=== PATIENT | male | born 1930 | race Caucasian/White ===

== ENCOUNTER 2016-07-17 18:52 | Emergency (ER) | payer MEDICARE, OTHER ==
[~2016-07-17 18:52] MED LIST: ADULT ASPIRIN81 MG; ADULT LOW DOSE81 M1 PO; AGGRENOX1 CAP PO; ASPIRIN81 MG; ASPIRIN81 MG PO; AYR SALINE NASA22 ML; BACLOFEN10 MG PO; BISACODYL10 MG/SU; BISACODYL5 MG; CIPRO250 M2 PO; CIPRO500 M2 PO; COLACE; COREG3.125 M1 PO; COREG3.125 MG PO; DULCOLAX10 MG RC; ELIQ PO; ELIQUIS2.5 M1 PO; FLOMAX0.4 M1 PO; GLUCAGON EMERGEN1 MG IJ; GLUCOPHAGE500 M1 PO; GLUCOPHAGE500 MG/TA1 GT; HUMALOG100 UNITS/ SC; HYDROCHLOROTH12.5 MG PO; IRON325 M3 PO; JANUVIA100 MG PO; JANUVIA50 M1 PO; KEFLEX500 M4 PO; LEVEMIR FL100 UNIT/2 SC; LIQUITEARS15 M1 EACH EYE; METFORMIN HYDRO25 GM; MILK OF MA400 MG/5 M; MUCINEX1200 MG PO; NORCO 5/325 TAB1 TAB PO; NORVASC10 MG; NORVASC10 MG PO; NOVOLOG FL100 UNIT/2 SC; OFLOXACIN5 M2 OT; PEPCID20 M1 PO; PLAVIX75 MG; PLAVIX75 MG PO; PREDNISONE5 M1 PO; PRINIVIL20 MG PO; SENNA LAX8.6 M2 PO; SENOKOT8.6 M1 PO; SINGULAIR10 M1 PO; TYLENOL325 M2 PO; TYLENOL325 MG PO; ZOCOR40 M1 PO; ZOCOR40 MG; ZOCOR40 MG PO; ZYTIGA250 M1 PO
[2016-07-17] MEDS ORDERED: NORCO 5/3251 TAB PO (20:01)
[2016-07-17] MEDS ORDERED: KEFLEX500 M4 PO (20:01)
[2016-10-12] MEDS ORDERED: REMEDY CALAZIM113 G2 TOP (11:04)
[2016-10-12] MEDS ORDERED: BISCOLAX10 MG PR (11:05)
[2016-10-12] MEDS ORDERED: SWEEN 24255 GM TOP (11:05)
[2016-10-12] MEDS ORDERED: ENEMEEZ283 MG/5 M PR (11:06)
[2016-10-12] MEDS ORDERED: TRAMADOL HCL50 M2 PO (11:06)
[2016-10-12] MEDS ORDERED: TYLENOL325 M2 PO (11:07)
[2016-10-12] MEDS ORDERED: ONDANSETRON ODT4 M1 PO (11:07)
[2016-10-12] MEDS ORDERED: PHILLIPS'400 MG/51 PO (11:08)
[2016-10-12] MEDS ORDERED: IPRAT-ALBUT 0.5-3 ML INH ×2 (11:09→11:21)
[2016-10-12] MEDS ORDERED: [UNRECOGNIZED DRUG - OTHER] TOP (11:10)
[2016-10-12] MEDS ORDERED: NYAMYC15 GM TOP (11:10)
[2016-10-12] MEDS ORDERED: SULFAMYLON60 GM TOP (11:11)
[2016-10-12] MEDS ORDERED: LEVEMIR FL100 UNIT/2 SC (11:12)
[2016-10-12] MEDS ORDERED: LOVENOX30 MG/0.1 SC (11:12)
[2016-10-12] MEDS ORDERED: NOVOLOG FL100 UNIT/2 SC (11:14)
[2016-10-12] MEDS ORDERED: CALCI-CHEW500 MG PO (11:14)
[2016-10-12] MEDS ORDERED: ZOCOR40 M1 PO (11:14)
[2016-10-12] MEDS ORDERED: ACID CONTROL150 M2 PO (11:15)
[2016-10-12] MEDS ORDERED: LYRICA75 MG/CAP PO (11:15)
[2016-10-12] MEDS ORDERED: TEMAZEPAM15 M1 PO (11:16)
[2016-10-12] MEDS ORDERED: PREDNISONE5 M1 PO (11:16)
[2016-10-12] MEDS ORDERED: TYLENOL EXTRA500 M1 PO ×2 (11:17)
[2016-10-12] MEDS ORDERED: COREG3.125 M1 PO (11:18)
[2016-10-12] MEDS ORDERED: FEOSOL325 M1 PO (11:20)
[2016-10-12] MEDS ORDERED: ASPIRIN EC81 MG PO (11:20)
[2016-10-12] MEDS ORDERED: VANCOMYCIN125 MG/2.1 PO (11:20)
[2016-10-12] MEDS ORDERED: XTANDI40 M1 PO (11:21)
[2016-10-12] MEDS ORDERED: ZOSYN 3.373.375 GM/2 IV (11:23)
== END 2016-07-17 20:10 ==
LOC: EDMED 18:52
DX: S91.101A Unspecified open wound of right great toe without damage to nail, initial encounter (principal); L03.115 Cellulitis of right lower limb; E11.9 Type 2 diabetes mellitus without complications; E78.5 Hyperlipidemia, unspecified; Z79.4 Long term (current) use of insulin; X58.XXXA Exposure to other specified factors, initial encounter

== ENCOUNTER 2016-07-22 09:27 | Inpatient (IN) | payer MEDICARE, OTHER ==
[~2016-07-22 09:27] MED LIST changes: +NORCO 5/3251 TAB PO
[2016-07-22] MEDS ORDERED: NORCO 5-325 TA1 EACH PO (09:39)
[2016-07-22] MEDS ORDERED: POTASSIUM CHLO20 ME3 PO (09:40)
[2016-07-22] MEDS ORDERED: KEFLEX500 M4 PO (09:40)
[2016-07-22] MEDS ORDERED: LASIX40 M1 PO (09:40)
[2016-07-22] MEDS ORDERED: XTANDI40 M1 PO (09:48)
[2016-07-22 10:19] LABS: BASO % 0.2 % (0-2); EOS % 1.6 % (0-7); EOSINOPHIL ABSOLUTE COUNT 0.1 tho/cmm (0.0-0.7); HGB-HEMOGLOBIN 10.4 gm/dl (13.5-17.0); IMMATURE GRANULOCYTES ABSOLUTE 0.04 tho/cmm (0-0.03); IMMATURE GRANULOCYTES PERCENT 0.7 % (0-0.3); LYMPH % 8.6 % (20-45); LYMPH ABSOLUTE COUNT 0.5 tho/cmm (0.8-4.5); MCH (MEAN CORPUSCULAR HGB) 29.4 pg (28.0-32.0); MCHC MEAN CORPUSCULAR HGB CONC 32.5 % (32.0-36.0); MCV (MEAN CELL VOLUME) 90.4 fl (82.0-96.0); MEAN PLATELET VOLUME 10.7 cmc (9.4-12.4); MONO % 9.3 % (0-12); MONOCYTE ABSOLUTE COUNT 0.6 tho/cmm (0.0-1.2); NEUTROPHIL ABSOLUTE COUNT 4.9 tho/cmm (1.6-8.0); NEUTROPHIL-AUTOMATED 4.9 tho/cmm (1.6-8.0); NEUTROPHILS % 79.6 % (40-80); PLATELET COUNT 289 tho/cmm (150-450); RED BLOOD COUNT 3.54 mil/cmm (4.40-5.70); RED CELL DISTRIBUTION WIDTH 14.7 % (12.4-16.4); WHITE BLOOD COUNT 6.1 tho/cmm (4.0-10.0)
[2016-07-22 10:36] LABS: ALB/GLOB RATIO 0.8 (0.8-2.0); ALBUMIN 3.2 g/dl (3.5-5.0); ALKALINE PHOSPHATASE 240 U/L (33-138); ALT/SGPT 11 U/L (12-78); ANION GAP 12 mmol/L (0-20); AST/SGOT 49 U/L (10-40); BILIRUBIN,TOTAL 0.7 mg/dl (0.0-1.5); BLOOD UREA NITROGEN 31 mg/dl (6-24); CALCIUM 8.7 mg/dl (8.5-10.5); CARBON DIOXIDE-VENOUS 28 mmol/L (22-32); CHLORIDE 107 mmol/l (96-110); CREATININE 1.51 mg/dl (0.60-1.30); GLUCOSE 189 mg/dL (70-110); POTASSIUM 3.9 mmol/L (3.7-5.1); SODIUM 143 mmol/L (135-145); eGFR VALUE FOR BLACK 48 mL/Min
[2016-07-22 15:04] LABS: URINE BILIRUBIN NEGATIVE (NEG); URINE BLOOD SMALL (NEG); URINE GLUCOSE (UA) NEGATIVE (NEG); URINE KETONE NEGATIVE (NEG); URINE LEUKOCYTE ESTERASE NEGATIVE (NEG); URINE NITRITE NEGATIVE (NEG); URINE PROTEIN MODERATE (NEG); URINE SPECIFIC GRAVITY 1.015 (1.003-1.030)
[2016-07-22 15:05] LABS: URINE APPEARANCE CLEAR; URINE COLOR YELLOW
[2016-07-22 15:20] LABS: URINE AMORPHOUS 2+; URINE MUCUS 1+
[2016-07-23 01:45] LABS: BASO % 0.2 % (0-2); EOS % 1.6 % (0-7); EOSINOPHIL ABSOLUTE COUNT 0.1 tho/cmm (0.0-0.7); HCT-HEMATOCRIT 28.3 % (36.0-53.5); HGB-HEMOGLOBIN 9.1 gm/dl (13.5-17.0); IMMATURE GRANULOCYTES ABSOLUTE 0.04 tho/cmm (0-0.03); IMMATURE GRANULOCYTES PERCENT 0.8 % (0-0.3); LYMPH % 15.2 % (20-45); LYMPH ABSOLUTE COUNT 0.8 tho/cmm (0.8-4.5); MCH (MEAN CORPUSCULAR HGB) 28.7 pg (28.0-32.0); MCHC MEAN CORPUSCULAR HGB CONC 32.2 % (32.0-36.0); MCV (MEAN CELL VOLUME) 89.3 fl (82.0-96.0); MEAN PLATELET VOLUME 10.4 cmc (9.4-12.4); MONO % 10.6 % (0-12); MONOCYTE ABSOLUTE COUNT 0.5 tho/cmm (0.0-1.2); NEUTROPHIL ABSOLUTE COUNT 3.6 tho/cmm (1.6-8.0); NEUTROPHIL-AUTOMATED 3.6 tho/cmm (1.6-8.0); NEUTROPHILS % 71.6 % (40-80); PLATELET COUNT 228 tho/cmm (150-450); RED BLOOD COUNT 3.17 mil/cmm (4.40-5.70); RED CELL DISTRIBUTION WIDTH 14.7 % (12.4-16.4)
[2016-07-23 02:13] LABS: ALB/GLOB RATIO 0.7 (0.8-2.0); ALBUMIN 2.5 g/dl (3.5-5.0); ALKALINE PHOSPHATASE 228 U/L (33-138); ALT/SGPT 11 U/L (12-78); ANION GAP 12 mmol/L (0-20); AST/SGOT 54 U/L (10-40); BILIRUBIN,TOTAL 0.7 mg/dl (0.0-1.5); BLOOD UREA NITROGEN 35 mg/dl (6-24); CALCIUM 8.1 mg/dl (8.5-10.5); CARBON DIOXIDE-VENOUS 28 mmol/L (22-32); CHLORIDE 107 mmol/l (96-110); CREATININE 1.55 mg/dl (0.60-1.30); POTASSIUM 3.8 mmol/L (3.7-5.1); SODIUM 143 mmol/L (135-145); eGFR VALUE FOR BLACK 46 mL/Min
[2016-07-23 02:16] LABS: GLUCOSE 93 mg/dL (70-110)
[2016-07-23 07:00] LABS: HGB-HEMOGLOBIN 8.5 gm/dl (13.5-17.0); PLATELET COUNT 211 tho/cmm (150-450)
--- NOTE | 2016-07-23 17:41 | NUR ---
virtual care note: checked in on pt. he recieves phone call. appears comfortable and has no current needs. no family present. pt sitting up in his bed. will continue to monitor. electronic chart reviewed.
[2016-07-24 04:58] LABS: BASO % 0.2 % (0-2); EOSINOPHIL ABSOLUTE COUNT 0.1 tho/cmm (0.0-0.7); HCT-HEMATOCRIT 27.9 % (36.0-53.5); HGB-HEMOGLOBIN 9.1 gm/dl (13.5-17.0); IMMATURE GRANULOCYTES ABSOLUTE 0.02 tho/cmm (0-0.03); IMMATURE GRANULOCYTES PERCENT 0.3 % (0-0.3); LYMPH % 13.2 % (20-45); LYMPH ABSOLUTE COUNT 0.8 tho/cmm (0.8-4.5); MCH (MEAN CORPUSCULAR HGB) 28.6 pg (28.0-32.0); MCHC MEAN CORPUSCULAR HGB CONC 32.6 % (32.0-36.0); MCV (MEAN CELL VOLUME) 87.7 fl (82.0-96.0); MEAN PLATELET VOLUME 10.8 cmc (9.4-12.4); MONO % 11.5 % (0-12); MONOCYTE ABSOLUTE COUNT 0.7 tho/cmm (0.0-1.2); NEUTROPHIL ABSOLUTE COUNT 4.5 tho/cmm (1.6-8.0); NEUTROPHIL-AUTOMATED 4.5 tho/cmm (1.6-8.0); NEUTROPHILS % 73.8 % (40-80); PLATELET COUNT 240 tho/cmm (150-450); RED BLOOD COUNT 3.18 mil/cmm (4.40-5.70); RED CELL DISTRIBUTION WIDTH 14.5 % (12.4-16.4); WHITE BLOOD COUNT 6.1 tho/cmm (4.0-10.0)
[2016-07-24 05:11] LABS: ANION GAP 13 mmol/L (0-20); BLOOD UREA NITROGEN 35 mg/dl (6-24); CALCIUM 8.1 mg/dl (8.5-10.5); CARBON DIOXIDE-VENOUS 26 mmol/L (22-32); CHLORIDE 105 mmol/l (96-110); CREATININE 1.54 mg/dl (0.60-1.30); POTASSIUM 3.6 mmol/L (3.7-5.1); SODIUM 140 mmol/L (135-145); eGFR VALUE FOR BLACK 47 mL/Min
[2016-07-24 05:17] LABS: GLUCOSE 157 mg/dL (70-110)
[2016-07-24] MEDS ORDERED: BACTRIM DS TAB1 EAC2 PO (09:59)
[2016-07-24] MEDS ORDERED: STOP HOME MEDICATION (10:00)
--- NOTE | 2016-07-24 13:40 | NUR ---
VIRTUAL CARE NOTE: PT DRESSED SITTING ON CHAIR, SAL IN ROOM READY FOR DISCHARGE TEACHING. INFORMATION GIVEN TO PT AND DAUGHTER, DENIES QUESTIONS OR CONCERNS. INFORMED FLOOR NURSE DISCHARGE TEACHING DONE.
[2016-10-12] MEDS ORDERED: REMEDY CALAZIM113 G2 TOP (11:04)
[2016-10-12] MEDS ORDERED: SWEEN 24255 GM TOP (11:05)
[2016-10-12] MEDS ORDERED: BISCOLAX10 MG PR (11:05)
[2016-10-12] MEDS ORDERED: ENEMEEZ283 MG/5 M PR (11:06)
[2016-10-12] MEDS ORDERED: TRAMADOL HCL50 M2 PO (11:06)
[2016-10-12] MEDS ORDERED: TYLENOL325 M2 PO (11:07)
[2016-10-12] MEDS ORDERED: ONDANSETRON ODT4 M1 PO (11:07)
[2016-10-12] MEDS ORDERED: PHILLIPS'400 MG/51 PO (11:08)
[2016-10-12] MEDS ORDERED: IPRAT-ALBUT 0.5-3 ML INH ×2 (11:09→11:21)
[2016-10-12] MEDS ORDERED: NYAMYC15 GM TOP (11:10)
[2016-10-12] MEDS ORDERED: [UNRECOGNIZED DRUG - OTHER] TOP (11:10)
[2016-10-12] MEDS ORDERED: SULFAMYLON60 GM TOP (11:11)
[2016-10-12] MEDS ORDERED: LOVENOX30 MG/0.1 SC (11:12)
[2016-10-12] MEDS ORDERED: LEVEMIR FL100 UNIT/2 SC (11:12)
[2016-10-12] MEDS ORDERED: ZOCOR40 M1 PO (11:14)
[2016-10-12] MEDS ORDERED: NOVOLOG FL100 UNIT/2 SC (11:14)
[2016-10-12] MEDS ORDERED: CALCI-CHEW500 MG PO (11:14)
[2016-10-12] MEDS ORDERED: ACID CONTROL150 M2 PO (11:15)
[2016-10-12] MEDS ORDERED: LYRICA75 MG/CAP PO (11:15)
[2016-10-12] MEDS ORDERED: TEMAZEPAM15 M1 PO (11:16)
[2016-10-12] MEDS ORDERED: PREDNISONE5 M1 PO (11:16)
[2016-10-12] MEDS ORDERED: TYLENOL EXTRA500 M1 PO ×2 (11:17)
[2016-10-12] MEDS ORDERED: COREG3.125 M1 PO (11:18)
[2016-10-12] MEDS ORDERED: ASPIRIN EC81 MG PO (11:20)
[2016-10-12] MEDS ORDERED: FEOSOL325 M1 PO (11:20)
[2016-10-12] MEDS ORDERED: VANCOMYCIN125 MG/2.1 PO (11:20)
[2016-10-12] MEDS ORDERED: XTANDI40 M1 PO (11:21)
[2016-10-12] MEDS ORDERED: ZOSYN 3.373.375 GM/2 IV (11:23)
== END 2016-07-24 14:30 | DRG 603 ==
LOC: EDMED 09:27 → EMR2 12:52 → 5WD 15:10
PROVIDERS: Emergency Medicine; Family Medicine; Internal Medicine; ADMIT Hospitalist
DX: L03.115 Cellulitis of right lower limb (principal); E11.22 Type 2 diabetes mellitus with diabetic chronic kidney disease; I69.354 Hemiplegia and hemiparesis following cerebral infarction affecting left non-dominant side; J20.9 Acute bronchitis, unspecified; E78.5 Hyperlipidemia, unspecified; K21.9 Gastro-esophageal reflux disease without esophagitis; I12.9 Hypertensive chronic kidney disease with stage 1 through stage 4 chronic kidney disease, or unspecified chronic kidney disease; N18.9 Chronic kidney disease, unspecified; I48.91 Unspecified atrial fibrillation; M19.90 Unspecified osteoarthritis, unspecified site; D64.9 Anemia, unspecified; Z85.46 Personal history of malignant neoplasm of prostate; Z85.9 Personal history of malignant neoplasm, unspecified
CPT/HCPCS: G8978-GP-CK; G8979-GP-CJ; G8980-GP-CK; G8987-GO-CK; G8988-GO-CK; G8989-GO-CK; J1650; J1815; J2543; J3370; J7030; J7512

== ENCOUNTER 2016-08-31 13:48 | Inpatient (IN) | payer MEDICARE, OTHER ==
[~2016-08-31 13:48] MED LIST changes: +BACTRIM DS TAB1 EAC2 PO; +LASIX40 M1 PO; +NORCO 5-325 TA1 EACH PO; +POTASSIUM CHLO20 ME3 PO; +STOP HOME MEDICATION; +XTANDI40 M1 PO
[2016-08-31 18:09] LABS: ANION GAP 14 mmol/L (0-20); BLOOD UREA NITROGEN 36 mg/dl (6-24); CALCIUM 8.7 mg/dl (8.5-10.5); CARBON DIOXIDE-VENOUS 23 mmol/L (22-32); CHLORIDE 110 mmol/l (96-110); CREATININE 1.52 mg/dl (0.60-1.30); GLUCOSE 142 mg/dL (70-110); POTASSIUM 4.6 mmol/L (3.7-5.1); SODIUM 142 mmol/L (135-145); eGFR VALUE FOR BLACK 47 mL/Min
[2016-08-31 18:33] LABS: BASO % 0.2 % (0-2); EOS % 1.7 % (0-7); EOSINOPHIL ABSOLUTE COUNT 0.1 tho/cmm (0.0-0.7); HCT-HEMATOCRIT 28.9 % (36.0-53.5); HGB-HEMOGLOBIN 9.2 gm/dl (13.5-17.0); IMMATURE GRANULOCYTES ABSOLUTE 0.04 tho/cmm (0-0.03); IMMATURE GRANULOCYTES PERCENT 0.8 % (0-0.3); LYMPH % 13.9 % (20-45); LYMPH ABSOLUTE COUNT 0.7 tho/cmm (0.8-4.5); MCH (MEAN CORPUSCULAR HGB) 27.6 pg (28.0-32.0); MCHC MEAN CORPUSCULAR HGB CONC 31.8 % (32.0-36.0); MCV (MEAN CELL VOLUME) 86.8 fl (82.0-96.0); MEAN PLATELET VOLUME 10.8 cmc (9.4-12.4); MONO % 4.6 % (0-12); MONOCYTE ABSOLUTE COUNT 0.2 tho/cmm (0.0-1.2); NEUTROPHIL ABSOLUTE COUNT 4.1 tho/cmm (1.6-8.0); NEUTROPHIL-AUTOMATED 4.1 tho/cmm (1.6-8.0); NEUTROPHILS % 78.8 % (40-80); PLATELET COUNT 348 tho/cmm (150-450); RED BLOOD COUNT 3.33 mil/cmm (4.40-5.70); RED CELL DISTRIBUTION WIDTH 16.3 % (12.4-16.4); WHITE BLOOD COUNT 5.2 tho/cmm (4.0-10.0)
[2016-08-31 18:48] LABS: PROTHROMBIN TIME 11.1 SECONDS (9.0-13.6)
[2016-09-04] MEDS ORDERED: NORCO 5-325 TA1 EACH PO (13:34)
[2016-10-12] MEDS ORDERED: REMEDY CALAZIM113 G2 TOP (11:04)
[2016-10-12] MEDS ORDERED: BISCOLAX10 MG PR (11:05)
[2016-10-12] MEDS ORDERED: SWEEN 24255 GM TOP (11:05)
[2016-10-12] MEDS ORDERED: ENEMEEZ283 MG/5 M PR (11:06)
[2016-10-12] MEDS ORDERED: TRAMADOL HCL50 M2 PO (11:06)
[2016-10-12] MEDS ORDERED: ONDANSETRON ODT4 M1 PO (11:07)
[2016-10-12] MEDS ORDERED: TYLENOL325 M2 PO (11:07)
[2016-10-12] MEDS ORDERED: PHILLIPS'400 MG/51 PO (11:08)
[2016-10-12] MEDS ORDERED: IPRAT-ALBUT 0.5-3 ML INH ×2 (11:09→11:21)
[2016-10-12] MEDS ORDERED: [UNRECOGNIZED DRUG - OTHER] TOP (11:10)
[2016-10-12] MEDS ORDERED: NYAMYC15 GM TOP (11:10)
[2016-10-12] MEDS ORDERED: SULFAMYLON60 GM TOP (11:11)
[2016-10-12] MEDS ORDERED: LEVEMIR FL100 UNIT/2 SC (11:12)
[2016-10-12] MEDS ORDERED: LOVENOX30 MG/0.1 SC (11:12)
[2016-10-12] MEDS ORDERED: CALCI-CHEW500 MG PO (11:14)
[2016-10-12] MEDS ORDERED: ZOCOR40 M1 PO (11:14)
[2016-10-12] MEDS ORDERED: NOVOLOG FL100 UNIT/2 SC (11:14)
[2016-10-12] MEDS ORDERED: ACID CONTROL150 M2 PO (11:15)
[2016-10-12] MEDS ORDERED: LYRICA75 MG/CAP PO (11:15)
[2016-10-12] MEDS ORDERED: PREDNISONE5 M1 PO (11:16)
[2016-10-12] MEDS ORDERED: TEMAZEPAM15 M1 PO (11:16)
[2016-10-12] MEDS ORDERED: TYLENOL EXTRA500 M1 PO ×2 (11:17)
[2016-10-12] MEDS ORDERED: COREG3.125 M1 PO (11:18)
[2016-10-12] MEDS ORDERED: FEOSOL325 M1 PO (11:20)
[2016-10-12] MEDS ORDERED: ASPIRIN EC81 MG PO (11:20)
[2016-10-12] MEDS ORDERED: VANCOMYCIN125 MG/2.1 PO (11:20)
[2016-10-12] MEDS ORDERED: XTANDI40 M1 PO (11:21)
[2016-10-12] MEDS ORDERED: ZOSYN 3.373.375 GM/2 IV (11:23)
== END 2016-09-04 14:55 | DRG 617 ==
LOC: WCC 13:48 → BURN 16:49
PROVIDERS: ADMIT Surgery
PROC: 0J9Q0ZZ Drainage of Right Foot Subcutaneous Tissue and Fascia, Open Approach (ICD-10-PCS; 2016-08-31)
PROC: 02HV33Z Insertion of Infusion Device into Superior Vena Cava, Percutaneous Approach (ICD-10-PCS; 2016-08-31)
PROC: 0Y6P0Z0 Detachment at Right 1st Toe, Complete, Open Approach (ICD-10-PCS; principal; 2016-09-01)
DX: E11.69 Type 2 diabetes mellitus with other specified complication (principal); L02.611 Cutaneous abscess of right foot; E11.52 Type 2 diabetes mellitus with diabetic peripheral angiopathy with gangrene; M86.8X7 Other osteomyelitis, ankle and foot; I69.30 Unspecified sequelae of cerebral infarction; E11.628 Type 2 diabetes mellitus with other skin complications; I10 Essential (primary) hypertension; Z87.891 Personal history of nicotine dependence; Z79.02 Long term (current) use of antithrombotics/antiplatelets; Z79.4 Long term (current) use of insulin
CPT/HCPCS: C1751; J1815; J2543; J7030; J7050; J7512

== ENCOUNTER 2016-09-19 11:53 | Inpatient (IN) | payer MEDICARE, OTHER ==
[2016-09-19 13:29] LABS: HGB-HEMOGLOBIN 7.6 gm/dl (13.5-17.0); MCH (MEAN CORPUSCULAR HGB) 27.9 pg (28.0-32.0); MCV (MEAN CELL VOLUME) 85.7 fl (82.0-96.0); MEAN PLATELET VOLUME 10.6 cmc (9.4-12.4); NEUTROPHIL-AUTOMATED 5.8 tho/cmm (1.6-8.0); PLATELET COUNT 380 tho/cmm (150-450); RED BLOOD COUNT 2.72 mil/cmm (4.40-5.70); RED CELL DISTRIBUTION WIDTH 17.5 % (12.4-16.4); WHITE BLOOD COUNT 7.8 tho/cmm (4.0-10.0)
[2016-09-19 13:37] LABS: BASO % 0.6 % (0-2); BASO ABSOLUTE COUNT 0.1 tho/cmm (0.0-0.2); EOS % 3.8 % (0-7); EOSINOPHIL ABSOLUTE COUNT 0.3 tho/cmm (0.0-0.7); HCT-HEMATOCRIT 23.3 % (36.0-53.5); IMMATURE GRANULOCYTES ABSOLUTE 0.48 tho/cmm (0-0.03); IMMATURE GRANULOCYTES PERCENT 6.1 % (0-0.3); LYMPH % 10.4 % (20-45); LYMPH ABSOLUTE COUNT 0.8 tho/cmm (0.8-4.5); MCHC MEAN CORPUSCULAR HGB CONC 32.6 % (32.0-36.0); MONO % 5.4 % (0-12); MONOCYTE ABSOLUTE COUNT 0.4 tho/cmm (0.0-1.2); NEUTROPHIL ABSOLUTE COUNT 5.8 tho/cmm (1.6-8.0); NEUTROPHILS % 73.7 % (40-80)
[2016-09-19 13:47] LABS: ALB/GLOB RATIO 0.4 (0.8-2.0); ALBUMIN 1.8 g/dl (3.5-5.0); ALKALINE PHOSPHATASE 186 U/L (33-138); ALT/SGPT 11 U/L (12-78); ANION GAP 19 mmol/L (0-20); AST/SGOT 22 U/L (10-40); BILIRUBIN,TOTAL 0.3 mg/dl (0.0-1.5); BLOOD UREA NITROGEN 78 mg/dl (6-24); CALCIUM 7.3 mg/dl (8.5-10.5); CARBON DIOXIDE-VENOUS 17 mmol/L (22-32); CHLORIDE 118 mmol/l (96-110); CREATININE 2.79 mg/dl (0.60-1.30); GLUCOSE 142 mg/dL (70-110); POTASSIUM 4.6 mmol/L (3.7-5.1); PREALBUMIN 11.9 mg/dl (20.0-40.0); SODIUM 149 mmol/L (135-145); eGFR VALUE FOR BLACK 23 mL/Min
[2016-09-19 16:44] LABS: IRON 60 ug/dl (49-181); IRON BINDING CAPACITY 170 ug/dl (250-450)
[2016-09-19 23:52] LABS: URINE LEUKOCYTE ESTERASE POSITIVE (NEG); URINE PROTEIN MODERATE (NEG); URINE SPECIFIC GRAVITY 1.015 (1.003-1.030)
[2016-09-19 23:53] LABS: URINE APPEARANCE CLOUDY; URINE BILIRUBIN NEGATIVE (NEG); URINE BLOOD LARGE (NEG); URINE COLOR YELLOW; URINE GLUCOSE (UA) SMALL (NEG); URINE KETONE NEGATIVE (NEG); URINE NITRITE NEGATIVE (NEG)
[2016-09-19 23:58] LABS: URINE EPITHELIAL CELLS 0 /[HPF] (0-10); URINE RBC FULL FIELD /[HPF] (0-5); URINE WBC 0-3 /[HPF] (0-5)
[2016-09-20 00:09] LABS: URINE PRT/CR RATIO 4.37 Ratio (0.0-0.20)
[2016-09-20 06:25] LABS: HGB-HEMOGLOBIN 6.9 gm/dl (13.5-17.0); MCV (MEAN CELL VOLUME) 85.4 fl (82.0-96.0); MEAN PLATELET VOLUME 11.2 cmc (9.4-12.4); NEUTROPHIL-AUTOMATED 4.8 tho/cmm (1.6-8.0); PLATELET COUNT 363 tho/cmm (150-450); RED BLOOD COUNT 2.46 mil/cmm (4.40-5.70); RED CELL DISTRIBUTION WIDTH 17.5 % (12.4-16.4); WHITE BLOOD COUNT 6.8 tho/cmm (4.0-10.0)
[2016-09-20 06:29] LABS: ANION GAP 19 mmol/L (0-20); BLOOD UREA NITROGEN 78 mg/dl (6-24); CALCIUM 6.9 mg/dl (8.5-10.5); CARBON DIOXIDE-VENOUS 17 mmol/L (22-32); CHLORIDE 116 mmol/l (96-110); CREATININE 2.64 mg/dl (0.60-1.30); GLUCOSE 100 mg/dL (70-110); MAGNESIUM 2.3 mg/dl (1.8-2.6); PHOSPHOROUS 8.3 mg/dl (2.5-4.9); POTASSIUM 4.7 mmol/L (3.7-5.1); SODIUM 147 mmol/L (135-145); eGFR VALUE FOR BLACK 24 mL/Min
[2016-09-20 06:35] LABS: MCHC MEAN CORPUSCULAR HGB CONC 32.9 % (32.0-36.0)
[2016-09-20 07:34] LABS: BAND % 5 % (0-20); BAND ABSOLUTE COUNT 0.3 tho/cmm (0-2.0); EOSINOPHIL % 9 % (0-7)
[2016-09-21 05:56] LABS: BASO % 0.2 % (0-2); EOS % 2.8 % (0-7); EOSINOPHIL ABSOLUTE COUNT 0.2 tho/cmm (0.0-0.7); HCT-HEMATOCRIT 24.7 % (36.0-53.5); HGB-HEMOGLOBIN 8.2 gm/dl (13.5-17.0); IMMATURE GRANULOCYTES ABSOLUTE 0.16 tho/cmm (0-0.03); IMMATURE GRANULOCYTES PERCENT 1.9 % (0-0.3); LYMPH ABSOLUTE COUNT 0.8 tho/cmm (0.8-4.5); MCH (MEAN CORPUSCULAR HGB) 28.1 pg (28.0-32.0); MCHC MEAN CORPUSCULAR HGB CONC 33.2 % (32.0-36.0); MCV (MEAN CELL VOLUME) 84.6 fl (82.0-96.0); MEAN PLATELET VOLUME 11.3 cmc (9.4-12.4); MONO % 5.1 % (0-12); MONOCYTE ABSOLUTE COUNT 0.4 tho/cmm (0.0-1.2); NEUTROPHIL ABSOLUTE COUNT 6.9 tho/cmm (1.6-8.0); NEUTROPHIL-AUTOMATED 6.9 tho/cmm (1.6-8.0); PLATELET COUNT 344 tho/cmm (150-450); RED BLOOD COUNT 2.92 mil/cmm (4.40-5.70); RED CELL DISTRIBUTION WIDTH 16.7 % (12.4-16.4); WHITE BLOOD COUNT 8.5 tho/cmm (4.0-10.0)
[2016-09-21 06:14] LABS: ANION GAP 19 mmol/L (0-20); BLOOD UREA NITROGEN 70 mg/dl (6-24); CARBON DIOXIDE-VENOUS 17 mmol/L (22-32); CHLORIDE 113 mmol/l (96-110); CREATININE 2.43 mg/dl (0.60-1.30); GLUCOSE 86 mg/dL (70-110); POTASSIUM 4.5 mmol/L (3.7-5.1); SODIUM 144 mmol/L (135-145); eGFR VALUE FOR BLACK 27 mL/Min
[2016-09-22 06:06] LABS: ANION GAP 16 mmol/L (0-20); BLOOD UREA NITROGEN 66 mg/dl (6-24); CALCIUM 6.9 mg/dl (8.5-10.5); CARBON DIOXIDE-VENOUS 18 mmol/L (22-32); CHLORIDE 112 mmol/l (96-110); CREATININE 2.25 mg/dl (0.60-1.30); GLUCOSE 99 mg/dL (70-110); PHOSPHOROUS 6.2 mg/dl (2.5-4.9); POTASSIUM 4.2 mmol/L (3.7-5.1); SODIUM 142 mmol/L (135-145); eGFR VALUE FOR BLACK 30 mL/Min
[2016-09-23 04:29] LABS: ANION GAP 17 mmol/L (0-20); BLOOD UREA NITROGEN 62 mg/dl (6-24); CARBON DIOXIDE-VENOUS 18 mmol/L (22-32); CHLORIDE 111 mmol/l (96-110); CREATININE 2.14 mg/dl (0.60-1.30); GLUCOSE 110 mg/dL (70-110); POTASSIUM 4.2 mmol/L (3.7-5.1); SODIUM 142 mmol/L (135-145); eGFR VALUE FOR BLACK 31 mL/Min
[2016-09-23] MEDS ORDERED: SANTYL30 G1 TP (09:50)
[2016-09-23] MEDS ORDERED: LYRICA75 MG/CAP PO (09:51)
[2016-09-23] MEDS ORDERED: NORVASC5 M2 PO (09:51)
[2016-09-23] MEDS ORDERED: HYDROXYZINE HCL10 M1 PO (09:53)
[2016-09-23] MEDS ORDERED: ULTRAM50 M1 PO (09:54)
[2016-09-23] MEDS ORDERED: ZOSYN IV (09:55)
[2016-09-23] MEDS ORDERED: SWEEN 24255 GM TP (09:55)
[2016-09-23] MEDS ORDERED: ZANTAC150 M1 PO (09:56)
[2016-09-23] MEDS ORDERED: CALMOSEPTINE OI71 G1 TP ×2 (09:57→09:59)
[2016-09-23] MEDS ORDERED: ZOFRAN ODT4 MG PO (09:57)
[2016-09-23] MEDS ORDERED: NYSTOP60 GM EXT (09:58)
[2016-09-23] MEDS ORDERED: GLUCAGEN1 MG IM (09:59)
[2016-09-23] MEDS ORDERED: NOVOLOG FL100 UNIT/2 SC (10:01)
[2016-09-23] MEDS ORDERED: TYLENOL325 M2 PO (10:02)
[2016-09-23] MEDS ORDERED: MILK OF MAGNESIA PO (10:03)
[2016-09-23] MEDS ORDERED: DULCOLAX10 MG PR (10:03)
[2016-09-23] MEDS ORDERED: GLUCOSE4 GM PO (10:04)
[2016-09-23] MEDS ORDERED: ENEMEEZ283 MG/5 M PR (10:04)
[2016-09-23] MEDS ORDERED: DEXTROSE 525 GM/501 IV (10:05)
[2016-09-23] MEDS ORDERED: NORMAL SALINE FL2 ML IV ×2 (10:06)
[2016-09-25 03:51] LABS: BASO % 0.1 % (0-2); EOS % 1.8 % (0-7); EOSINOPHIL ABSOLUTE COUNT 0.1 tho/cmm (0.0-0.7); HGB-HEMOGLOBIN 7.9 gm/dl (13.5-17.0); IMMATURE GRANULOCYTES PERCENT 1.4 % (0-0.3); LYMPH % 9.5 % (20-45); LYMPH ABSOLUTE COUNT 0.7 tho/cmm (0.8-4.5); MCH (MEAN CORPUSCULAR HGB) 28.2 pg (28.0-32.0); MCHC MEAN CORPUSCULAR HGB CONC 32.9 % (32.0-36.0); MCV (MEAN CELL VOLUME) 85.7 fl (82.0-96.0); MEAN PLATELET VOLUME 11.5 cmc (9.4-12.4); MONO % 6.6 % (0-12); MONOCYTE ABSOLUTE COUNT 0.5 tho/cmm (0.0-1.2); NEUTROPHIL ABSOLUTE COUNT 5.7 tho/cmm (1.6-8.0); NEUTROPHIL-AUTOMATED 5.7 tho/cmm (1.6-8.0); NEUTROPHILS % 80.6 % (40-80); PLATELET COUNT 167 tho/cmm (150-450); WHITE BLOOD COUNT 7.1 tho/cmm (4.0-10.0)
[2016-09-25 04:03] LABS: ALB/GLOB RATIO 0.3 (0.8-2.0); ALBUMIN 1.4 g/dl (3.5-5.0); ALKALINE PHOSPHATASE 216 U/L (33-138); ANION GAP 18 mmol/L (0-20); AST/SGOT 30 U/L (10-40); BILIRUBIN,TOTAL 0.3 mg/dl (0.0-1.5); BLOOD UREA NITROGEN 62 mg/dl (6-24); CALCIUM 7.2 mg/dl (8.5-10.5); CARBON DIOXIDE-VENOUS 18 mmol/L (22-32); CHLORIDE 111 mmol/l (96-110); CREATININE 2.33 mg/dl (0.60-1.30); GLUCOSE 110 mg/dL (70-110); PHOSPHOROUS 5.7 mg/dl (2.5-4.9); SODIUM 143 mmol/L (135-145); eGFR VALUE FOR BLACK 28 mL/Min
[2016-09-25 04:20] LABS: ALT/SGPT <10 U/L (12-78)
[2016-09-26 06:17] LABS: ANION GAP 16 mmol/L (0-20); BLOOD UREA NITROGEN 61 mg/dl (6-24); CALCIUM 6.9 mg/dl (8.5-10.5); CARBON DIOXIDE-VENOUS 20 mmol/L (22-32); CHLORIDE 110 mmol/l (96-110); CREATININE 2.42 mg/dl (0.60-1.30); GLUCOSE 126 mg/dL (70-110); SODIUM 142 mmol/L (135-145); eGFR VALUE FOR BLACK 27 mL/Min
[2016-09-26 12:51] LABS: BASO % 0.1 % (0-2); EOSINOPHIL ABSOLUTE COUNT 0.2 tho/cmm (0.0-0.7); HCT-HEMATOCRIT 27.1 % (36.0-53.5); HGB-HEMOGLOBIN 8.8 gm/dl (13.5-17.0); IMMATURE GRANULOCYTES ABSOLUTE 0.07 tho/cmm (0-0.03); IMMATURE GRANULOCYTES PERCENT 0.8 % (0-0.3); LYMPH % 5.2 % (20-45); LYMPH ABSOLUTE COUNT 0.5 tho/cmm (0.8-4.5); MCH (MEAN CORPUSCULAR HGB) 27.9 pg (28.0-32.0); MCHC MEAN CORPUSCULAR HGB CONC 32.5 % (32.0-36.0); MEAN PLATELET VOLUME 12.7 cmc (9.4-12.4); MONO % 7.8 % (0-12); MONOCYTE ABSOLUTE COUNT 0.7 tho/cmm (0.0-1.2); NEUTROPHIL ABSOLUTE COUNT 7.5 tho/cmm (1.6-8.0); NEUTROPHIL-AUTOMATED 7.5 tho/cmm (1.6-8.0); NEUTROPHILS % 84.1 % (40-80); PLATELET COUNT 211 tho/cmm (150-450); RED BLOOD COUNT 3.15 mil/cmm (4.40-5.70); RED CELL DISTRIBUTION WIDTH 17.1 % (12.4-16.4); WHITE BLOOD COUNT 8.9 tho/cmm (4.0-10.0)
[2016-09-27 04:41] LABS: BASO % 0.3 % (0-2); EOS % 2.9 % (0-7); EOSINOPHIL ABSOLUTE COUNT 0.2 tho/cmm (0.0-0.7); HGB-HEMOGLOBIN 7.8 gm/dl (13.5-17.0); IMMATURE GRANULOCYTES ABSOLUTE 0.04 tho/cmm (0-0.03); IMMATURE GRANULOCYTES PERCENT 0.6 % (0-0.3); LYMPH % 12.4 % (20-45); LYMPH ABSOLUTE COUNT 0.8 tho/cmm (0.8-4.5); MCH (MEAN CORPUSCULAR HGB) 28.2 pg (28.0-32.0); MCHC MEAN CORPUSCULAR HGB CONC 32.6 % (32.0-36.0); MCV (MEAN CELL VOLUME) 86.3 fl (82.0-96.0); MEAN PLATELET VOLUME 12.3 cmc (9.4-12.4); MONO % 7.1 % (0-12); MONOCYTE ABSOLUTE COUNT 0.5 tho/cmm (0.0-1.2); NEUTROPHILS % 76.7 % (40-80); PLATELET COUNT 196 tho/cmm (150-450); RED BLOOD COUNT 2.77 mil/cmm (4.40-5.70); WHITE BLOOD COUNT 6.5 tho/cmm (4.0-10.0)
[2016-09-27 04:45] LABS: HCT-HEMATOCRIT 23.9 % (36.0-53.5)
[2016-09-27 05:12] LABS: ANION GAP 17 mmol/L (0-20); BLOOD UREA NITROGEN 58 mg/dl (6-24); CALCIUM 6.8 mg/dl (8.5-10.5); CARBON DIOXIDE-VENOUS 18 mmol/L (22-32); CHLORIDE 111 mmol/l (96-110); CREATININE 2.44 mg/dl (0.60-1.30); GLUCOSE 84 mg/dL (70-110); SODIUM 142 mmol/L (135-145); eGFR VALUE FOR BLACK 27 mL/Min
[2016-09-28 05:00] LABS: BASO % 0.3 % (0-2); EOSINOPHIL ABSOLUTE COUNT 0.2 tho/cmm (0.0-0.7); HCT-HEMATOCRIT 24.6 % (36.0-53.5); IMMATURE GRANULOCYTES ABSOLUTE 0.06 tho/cmm (0-0.03); IMMATURE GRANULOCYTES PERCENT 0.9 % (0-0.3); LYMPH % 12.3 % (20-45); LYMPH ABSOLUTE COUNT 0.9 tho/cmm (0.8-4.5); MCH (MEAN CORPUSCULAR HGB) 28.4 pg (28.0-32.0); MCHC MEAN CORPUSCULAR HGB CONC 32.5 % (32.0-36.0); MCV (MEAN CELL VOLUME) 87.2 fl (82.0-96.0); MEAN PLATELET VOLUME 12.1 cmc (9.4-12.4); MONO % 5.3 % (0-12); MONOCYTE ABSOLUTE COUNT 0.4 tho/cmm (0.0-1.2); NEUTROPHIL ABSOLUTE COUNT 5.5 tho/cmm (1.6-8.0); NEUTROPHIL-AUTOMATED 5.5 tho/cmm (1.6-8.0); NEUTROPHILS % 78.2 % (40-80); PLATELET COUNT 211 tho/cmm (150-450); RED BLOOD COUNT 2.82 mil/cmm (4.40-5.70); RED CELL DISTRIBUTION WIDTH 17.3 % (12.4-16.4)
[2016-09-28 05:09] LABS: ANION GAP 15 mmol/L (0-20); BLOOD UREA NITROGEN 56 mg/dl (6-24); CARBON DIOXIDE-VENOUS 19 mmol/L (22-32); CHLORIDE 112 mmol/l (96-110); CREATININE 2.52 mg/dl (0.60-1.30); GLUCOSE 95 mg/dL (70-110); POTASSIUM 4.4 mmol/L (3.7-5.1); SODIUM 142 mmol/L (135-145); eGFR VALUE FOR BLACK 26 mL/Min
[2016-09-28 21:30] LABS: MAGNESIUM 2.1 mg/dl (1.8-2.6); POTASSIUM 4.5 mmol/L (3.7-5.1)
[2016-09-29 05:09] LABS: ALBUMIN 1.3 g/dl (3.5-5.0); ANION GAP 14 mmol/L (0-20); BLOOD UREA NITROGEN 56 mg/dl (6-24); CALCIUM 7.3 mg/dl (8.5-10.5); CARBON DIOXIDE-VENOUS 20 mmol/L (22-32); CHLORIDE 113 mmol/l (96-110); CREATININE 2.33 mg/dl (0.60-1.30); GLUCOSE 111 mg/dL (70-110); PHOSPHOROUS 4.5 mg/dl (2.5-4.9); POTASSIUM 4.1 mmol/L (3.7-5.1); SODIUM 143 mmol/L (135-145); eGFR VALUE FOR BLACK 28 mL/Min
[2016-09-29 09:34] LABS: BASO % 0.3 % (0-2); EOSINOPHIL ABSOLUTE COUNT 0.3 tho/cmm (0.0-0.7); HGB-HEMOGLOBIN 7.4 gm/dl (13.5-17.0); IMMATURE GRANULOCYTES ABSOLUTE 0.29 tho/cmm (0-0.03); LYMPH % 9.1 % (20-45); LYMPH ABSOLUTE COUNT 0.7 tho/cmm (0.8-4.5); MCH (MEAN CORPUSCULAR HGB) 28.1 pg (28.0-32.0); MCV (MEAN CELL VOLUME) 86.7 fl (82.0-96.0); MEAN PLATELET VOLUME 10.6 cmc (9.4-12.4); MONO % 4.8 % (0-12); MONOCYTE ABSOLUTE COUNT 0.4 tho/cmm (0.0-1.2); NEUTROPHIL ABSOLUTE COUNT 5.6 tho/cmm (1.6-8.0); NEUTROPHIL-AUTOMATED 5.6 tho/cmm (1.6-8.0); NEUTROPHILS % 77.8 % (40-80); PLATELET COUNT 206 tho/cmm (150-450); RED BLOOD COUNT 2.63 mil/cmm (4.40-5.70); RED CELL DISTRIBUTION WIDTH 17.8 % (12.4-16.4); WHITE BLOOD COUNT 7.2 tho/cmm (4.0-10.0)
[2016-09-29 09:38] LABS: HCT-HEMATOCRIT 22.8 % (36.0-53.5); MCHC MEAN CORPUSCULAR HGB CONC 32.5 % (32.0-36.0)
[2016-09-29 10:08] LABS: WBC MORPHOLOGY TOXIC GRANULATION
[2016-09-30 05:16] LABS: BASO % 0.3 % (0-2); EOS % 4.4 % (0-7); EOSINOPHIL ABSOLUTE COUNT 0.3 tho/cmm (0.0-0.7); HCT-HEMATOCRIT 25.4 % (36.0-53.5); HGB-HEMOGLOBIN 8.5 gm/dl (13.5-17.0); IMMATURE GRANULOCYTES ABSOLUTE 0.26 tho/cmm (0-0.03); IMMATURE GRANULOCYTES PERCENT 4.1 % (0-0.3); LYMPH % 11.9 % (20-45); LYMPH ABSOLUTE COUNT 0.8 tho/cmm (0.8-4.5); MCH (MEAN CORPUSCULAR HGB) 28.2 pg (28.0-32.0); MCHC MEAN CORPUSCULAR HGB CONC 33.5 % (32.0-36.0); MCV (MEAN CELL VOLUME) 84.4 fl (82.0-96.0); MEAN PLATELET VOLUME 11.6 cmc (9.4-12.4); MONO % 8.7 % (0-12); MONOCYTE ABSOLUTE COUNT 0.6 tho/cmm (0.0-1.2); NEUTROPHIL ABSOLUTE COUNT 4.5 tho/cmm (1.6-8.0); NEUTROPHIL-AUTOMATED 4.5 tho/cmm (1.6-8.0); NEUTROPHILS % 70.6 % (40-80); PLATELET COUNT 237 tho/cmm (150-450); RED BLOOD COUNT 3.01 mil/cmm (4.40-5.70); WHITE BLOOD COUNT 6.4 tho/cmm (4.0-10.0)
[2016-09-30 05:29] LABS: ALBUMIN 1.9 g/dl (3.5-5.0); ANION GAP 14 mmol/L (0-20); BLOOD UREA NITROGEN 50 mg/dl (6-24); CALCIUM 7.3 mg/dl (8.5-10.5); CARBON DIOXIDE-VENOUS 20 mmol/L (22-32); CHLORIDE 114 mmol/l (96-110); CREATININE 2.26 mg/dl (0.60-1.30); PHOSPHOROUS 4.7 mg/dl (2.5-4.9); POTASSIUM 3.8 mmol/L (3.7-5.1); SODIUM 144 mmol/L (135-145); eGFR VALUE FOR BLACK 29 mL/Min
[2016-09-30 05:40] LABS: GLUCOSE 70 mg/dL (70-110)
[2016-10-01 05:51] LABS: ALBUMIN 2.4 g/dl (3.5-5.0); ANION GAP 18 mmol/L (0-20); BLOOD UREA NITROGEN 45 mg/dl (6-24); CALCIUM 7.8 mg/dl (8.5-10.5); CARBON DIOXIDE-VENOUS 17 mmol/L (22-32); CHLORIDE 117 mmol/l (96-110); CREATININE 2.22 mg/dl (0.60-1.30); GLUCOSE 94 mg/dL (70-110); PHOSPHOROUS 4.6 mg/dl (2.5-4.9); POTASSIUM 3.9 mmol/L (3.7-5.1); SODIUM 148 mmol/L (135-145); eGFR VALUE FOR BLACK 30 mL/Min
[2016-10-01] MEDS ORDERED: VANCOMYCIN HCL125 M1 PO (13:43)
[2016-10-01] MEDS ORDERED: IPRAT-ALBUT 0.5-3 ML INH ×2 (13:44→13:45)
[2016-10-01] MEDS ORDERED: SODIUM BICARBO650 M1 PO (13:45)
[2016-10-01] MEDS ORDERED: RESTORIL30 M1 PO (13:46)
[2016-10-12] MEDS ORDERED: REMEDY CALAZIM113 G2 TOP (11:04)
[2016-10-12] MEDS ORDERED: BISCOLAX10 MG PR (11:05)
[2016-10-12] MEDS ORDERED: SWEEN 24255 GM TOP (11:05)
[2016-10-12] MEDS ORDERED: TRAMADOL HCL50 M2 PO (11:06)
[2016-10-12] MEDS ORDERED: ENEMEEZ283 MG/5 M PR (11:06)
[2016-10-12] MEDS ORDERED: ONDANSETRON ODT4 M1 PO (11:07)
[2016-10-12] MEDS ORDERED: TYLENOL325 M2 PO (11:07)
[2016-10-12] MEDS ORDERED: PHILLIPS'400 MG/51 PO (11:08)
[2016-10-12] MEDS ORDERED: IPRAT-ALBUT 0.5-3 ML INH ×2 (11:09→11:21)
[2016-10-12] MEDS ORDERED: [UNRECOGNIZED DRUG - OTHER] TOP (11:10)
[2016-10-12] MEDS ORDERED: NYAMYC15 GM TOP (11:10)
[2016-10-12] MEDS ORDERED: SULFAMYLON60 GM TOP (11:11)
[2016-10-12] MEDS ORDERED: LOVENOX30 MG/0.1 SC (11:12)
[2016-10-12] MEDS ORDERED: LEVEMIR FL100 UNIT/2 SC (11:12)
[2016-10-12] MEDS ORDERED: ZOCOR40 M1 PO (11:14)
[2016-10-12] MEDS ORDERED: NOVOLOG FL100 UNIT/2 SC (11:14)
[2016-10-12] MEDS ORDERED: CALCI-CHEW500 MG PO (11:14)
[2016-10-12] MEDS ORDERED: LYRICA75 MG/CAP PO (11:15)
[2016-10-12] MEDS ORDERED: ACID CONTROL150 M2 PO (11:15)
[2016-10-12] MEDS ORDERED: TEMAZEPAM15 M1 PO (11:16)
[2016-10-12] MEDS ORDERED: PREDNISONE5 M1 PO (11:16)
[2016-10-12] MEDS ORDERED: TYLENOL EXTRA500 M1 PO ×2 (11:17)
[2016-10-12] MEDS ORDERED: COREG3.125 M1 PO (11:18)
[2016-10-12] MEDS ORDERED: FEOSOL325 M1 PO (11:20)
[2016-10-12] MEDS ORDERED: ASPIRIN EC81 MG PO (11:20)
[2016-10-12] MEDS ORDERED: VANCOMYCIN125 MG/2.1 PO (11:20)
[2016-10-12] MEDS ORDERED: XTANDI40 M1 PO (11:21)
[2016-10-12] MEDS ORDERED: ZOSYN 3.373.375 GM/2 IV (11:23)
== END 2016-10-01 12:00 | disposition other institution (70) | DRG 463 ==
LOC: BURN 11:53
PROVIDERS: Family Medicine; Hospitalist; Internal Medicine; Internal Medicine Nephrology; Physician Assistant Surgical; Registered Nurse; ADMIT Surgery
PROC: 0JBQ0ZZ Excision of Right Foot Subcutaneous Tissue and Fascia, Open Approach (ICD-10-PCS; 2016-09-20)
PROC: 0QBN0ZX Excision of Right Metatarsal, Open Approach, Diagnostic (ICD-10-PCS; 2016-09-20)
PROC: 30233N1 Transfusion of Nonautologous Red Blood Cells into Peripheral Vein, Percutaneous Approach (ICD-10-PCS; 2016-09-20)
PROC: 0QBN0ZZ Excision of Right Metatarsal, Open Approach (ICD-10-PCS; principal; 2016-09-27)
DX: T87.53 Necrosis of amputation stump, right lower extremity (principal); G93.40 Encephalopathy, unspecified; E43 Unspecified severe protein-calorie malnutrition; N17.9 Acute kidney failure, unspecified; A04.7 Enterocolitis due to Clostridium difficile; C79.51 Secondary malignant neoplasm of bone; I95.9 Hypotension, unspecified; E11.52 Type 2 diabetes mellitus with diabetic peripheral angiopathy with gangrene; E87.2 Acidosis; I69.354 Hemiplegia and hemiparesis following cerebral infarction affecting left non-dominant side; M86.8X7 Other osteomyelitis, ankle and foot; C61 Malignant neoplasm of prostate; R13.10 Dysphagia, unspecified; E11.628 Type 2 diabetes mellitus with other skin complications; D64.9 Anemia, unspecified; I12.9 Hypertensive chronic kidney disease with stage 1 through stage 4 chronic kidney disease, or unspecified chronic kidney disease; K21.9 Gastro-esophageal reflux disease without esophagitis; E78.5 Hyperlipidemia, unspecified; Z79.4 Long term (current) use of insulin; N18.3 Chronic kidney disease, stage 3 (moderate); M19.90 Unspecified osteoarthritis, unspecified site; Z66 Do not resuscitate; E86.0 Dehydration; Z87.891 Personal history of nicotine dependence; R31.9 Hematuria, unspecified; I48.0 Paroxysmal atrial fibrillation; Z68.30 Body mass index [BMI] 30.0-30.9, adult; T17.920A Food in respiratory tract, part unspecified causing asphyxiation, initial encounter
CPT/HCPCS: G8978-GP-CL; G8979-GP-CK; G8996-GN-CJ; G8997-GN-CI; J0171; J1170; J1650; J1815; J1940; J2270; J2405; J2543; J3370; J7030; J7050; J7512; J7999; P9016; P9047